=== PATIENT | female | born 1965 ===

== ENCOUNTER 2017-11-24 16:11 | Emergency (ER) | payer MEDICAID ==
[2017-11-24 16:23] VITALS: BP 110/78; PULSE 88; RESP 18; TEMP 97.7; O2SAT 97
--- NOTE | 2017-11-24 16:49 | C.PDOC ---
History Of Present Illness 52 y/o female presents to the ED for evaluation after she sustained an injury to her right shoulder 1 week ago. Patient notes onset was after she tried to prevent her aunt from falling. She reports new onset of pain behind her right shoulder that is worse with movement. Patient is able to find some relief with Motrin and Tylenol. She denies other injuries. R SHOULDER INJURY X 1 WEEK. ONSET AFTER TRYING TO PREVENT AUNT FROM FALLING. NEW ONSET PAIN BEHIND R SHOULDER, WORSE W MOVEMENT. +RELIEF W MOTRIN, TYLENOL. DENIES OTHER INJURY. EXAM NONTOXIC NAD EXT R SHOULDER AROM W REPRODUC PAIN W INT ROTATION, FLEXION. NO DEFORM. NO SWELL SKIN NEG NEURO INTACT ADVISED POSSIBLE NEED FOR ORTHO, OUTPT MRI, PHYSICAL THERAPY. CONTINUE OTC PAIN RX. PT REFUSING PAIN MEDS @ THIS TIME. Time Seen by Provider: 11/24/17 16:35 Chief Complaint (Nursing): Upper Extremity Problem/Injury History Per: Patient History/Exam Limitations: no limitations Onset/Duration Of Symptoms: Other (1 week) Current Symptoms Are (Timing): Still Present Quality: "Pain" Exacerbating Factor(s): Movement Additional History Per: Patient Past Medical History Reviewed: Historical Data, Nursing Documentation, Vital Signs Vital Signs: Last Vital Signs Temp 97.7 F 11/24/17 16:19 Pulse 88 11/24/17 16:19 Resp 18 11/24/17 16:19 BP 110/78 11/24/17 16:19 Pulse Ox 97 11/24/17 22:51 - Medical History PMH: Asthma, Depression Surgical History: Appendectomy - [facility] Procedures CLOSURE SKIN & SUBCUTANEOUS NEC (05/18/13) TETANUS TOXOID ADMINIST (05/18/13) Family History: States: Unknown Family Hx - Social History Hx Tobacco Use: Yes Hx Alcohol Use: Yes Hx Substance Use: No - Immunization History Hx Tetanus Toxoid Vaccination: No Hx Influenza Vaccination: No Hx Pneumococcal Vaccination: No Review Of Systems Musculoskeletal: Positive for: Shoulder Pain (right) Physical Exam - Physical Exam Appears: Non-toxic, No Acute Distress Skin: Normal Color, Warm, Dry Head: Atraumatic, Normacephalic Eye(s): bilateral: Normal Inspection Extremity: Capillary Refill (less than 2 seconds ), No Deformity, No Swelling, Other (right shoulder AROM with reproducible pain with internal rotation and flexion) Neurological/Psych: Oriented x3, Normal Speech, Normal Cognition, Normal Sensation ED Course And Treatment O2 Sat by Pulse Oximetry: 97 (on RA) Pulse Ox Interpretation: Normal Progress Note: Lidoderm TD administered. Medical Decision Making Medical Decision Making: ADVISED POSSIBLE NEED FOR ORTHO, OUTPT MRI, PHYSICAL THERAPY. CONTINUE OTC PAIN RX. PT REFUSING PAIN MEDS @ THIS TIME. Disposition Counseled Patient/Family Regarding: Diagnosis, Need For Followup, Rx Given - Disposition Referrals: Yenifer Garcia MD [Staff Provider] - Disposition: HOME/ ROUTINE Disposition Time: 16:49 Condition: GOOD Prescriptions: Lidocaine 5% [Lidoderm] 1 ea TD PRN PRN #10 patch PRN Reason: Pain, Moderate (4-7) Instructions: Shoulder Sprain (DC), Stretching Exercises for Your Upper Body Forms: [facility] (Dominican) - Clinical Impression Clinical Impression: Right shoulder strain - Scribe Statement The provider has reviewed the documentation as recorded by the Scribe (Jacklyn Malagon) Provider Attestation: All medical record entries made by the Scribe were at my direction and personally dictated by me. I have reviewed the chart and agree that the record accurately reflects my personal performance of the history, physical exam, medical decision making, and the department course for this patient. I have also personally directed, reviewed, and agree with the discharge instructions and disposition.
[2017-11-24] MEDS ORDERED: Lidocaine 5% Patch TD STA (16:53)
[2017-11-24] MEDS ORDERED: Lidocaine 5% Patch TD ONE (17:19)
== END 2017-11-24 17:22 | disposition home or self-care (01) ==
LOC: C.ER 16:11
DX: S46.911A Strain of unspecified muscle, fascia and tendon at shoulder and upper arm level, right arm, initial encounter (principal); X58.XXXA Exposure to other specified factors, initial encounter; Z72.0 Tobacco use

== ENCOUNTER 2018-12-07 18:35 | Emergency (ER) | payer MEDICAID ==
[2018-12-07 18:54] VITALS: BP 133/84; PULSE 64; RESP 18; TEMP 98.4; O2SAT 98
[2018-12-07] MEDS ORDERED: Apap-Butalbital-Caffeine 325-50-40mg Tab PO STA (19:28)
[2018-12-07] MEDS ORDERED: Apap-Butalbital-Caffeine 325-50-40mg Tab ONE (19:47)
--- NOTE | 2018-12-07 21:29 | C.PDOC ---
History Of Present Illness 53 year old female presents to the ED c/o left sided periorbital headache for the past 2 days. Patient reports her headache is radiating to her left sided of her head and neck. Patient took 2 tablets of Advil [employer]. Patient reports having one similar episode one month ago, which resolved after she "slept it off". Patient denies fever, chills, visual changes, rash, neck pain, CP, SOB, nausea, vomit, dizziness, weakness, numbness. Time Seen by Provider: 12/07/18 19:18 Chief Complaint (Nursing): Headache History Per: Patient History/Exam Limitations: no limitations Onset/Duration Of Symptoms: Days (2) Current Symptoms Are (Timing): Still Present Quality: "Pain" Recent travel outside of the [place]: No Additional History Per: Patient Past Medical History Reviewed: Historical Data, Nursing Documentation, Vital Signs Vital Signs: Last Vital Signs Temp 98.4 F 12/07/18 18:49 Pulse 64 12/07/18 18:49 Resp 18 12/07/18 18:49 BP 133/84 12/07/18 18:49 Pulse Ox 98 12/07/18 18:49 Primary Care Provider: Maria A Shine - Medical History PMH: Asthma, Depression Surgical History: Appendectomy - [facility] Procedures CLOSURE SKIN & SUBCUTANEOUS NEC (05/18/13) TETANUS TOXOID ADMINIST (05/18/13) Family History: States: Unknown Family Hx - Social History Hx Tobacco Use: Yes Hx Alcohol Use: Yes Hx Substance Use: No - Immunization History Hx Tetanus Toxoid Vaccination: No Hx Influenza Vaccination: No Hx Pneumococcal Vaccination: No Review Of Systems Constitutional: Negative for: Fever, Chills Eyes: Negative for: Vision Change Cardiovascular: Negative for: Chest Pain, Palpitations Respiratory: Negative for: Shortness of Breath Gastrointestinal: Negative for: Nausea, Vomiting, Abdominal Pain Musculoskeletal: Negative for: Neck Pain Skin: Negative for: Rash Neurological: Positive for: Headache. Negative for: Weakness, Numbness, Dizziness Physical Exam - Physical Exam Appears: Non-toxic, No Acute Distress Skin: Normal Color, Warm, Dry Head: Atraumatic, Normacephalic Eye(s): bilateral: Normal Inspection, PERRL, EOMI Neck: Normal ROM, No Midline Cervical Tenderness, Supple Chest: Symmetrical Cardiovascular: Rhythm Regular Respiratory: Normal Breath Sounds, No Rales, No Rhonchi, No Wheezing Extremity: Normal ROM, No Tenderness, No Swelling Neurological/Psych: Oriented x3, Normal Speech, Normal Cognition Gait: Steady ED Course And Treatment O2 Sat by Pulse Oximetry: 98 (ON RA) Pulse Ox Interpretation: Normal - CT Scan/US CT head Other Rad Studies (CT/US): Read By Radiologist, Radiology Report Reviewed CT/US Interpretation: EXAM: CT Head Without IV contrast. CLINICAL HISTORY: Severe headache left sided. TECHNIQUE: Axial computed tomography images of the head/brain without intravenous contrast. COMPARISON: None provided. FINDINGS: BRAIN: No acute intraparenchymal hemorrhage. No mass lesion. No CT evidence for acute territorial infarct. No midline shift or extra-axial collections. VENTRICLES: No hydrocephalus. ORBITS: The orbits are unremarkable. SINUSES AND MASTOIDS: The paranasal sinuses and mastoid air cells are clear. BONES: No fracture. SOFT TISSUES: Unremarkable. IMPRESSION: No acute intracranial abnormality. . Electronically signed on December 07, 2018 9:14:51 PM EDT by: Mateo Cote M.D., M.B.A., Certified By [employer]. Fellowship Trained MRI and CT Specialist. Progress Note: PLan: - Fioricet 2 tab PO. - CT head. Patient was given Fioricet, however patient still c/o of headache. CT head was ordered. Upon coming back from CT patient reports improvement of symptoms. Patient was advised to follow up with PMD. Disposition Counseled Patient/Family Regarding: Diagnosis, Need For Followup, Rx Given - Disposition Referrals: Maria A Shine MD [Non-Staff] - Disposition: HOME/ ROUTINE Disposition Time: 21:26 Condition: STABLE Additional Instructions: Please follow up with PMD Take medications as directed Return to ER if worse Prescriptions: Acetaminophen/Butalbital/Caf [Fioricet] 1 - 2 tab PO TID PRN #20 tab PRN Reason: Headache Ibuprofen [Motrin] 600 mg PO Q6H #20 tab Instructions: Headache, Adult (DC) Forms: [facility] (Czech) - Clinical Impression Clinical Impression: Headache - PA / AESTHETICIAN / Resident Statement MD/DO has reviewed & agrees with the documentation as recorded. - Scribe Statement The provider has reviewed the documentation as recorded by the Scribe Hardy Chu All medical record entries made by the Scribe were at my direction and personally dictated by me. I have reviewed the chart and agree that the record accurately reflects my personal performance of the history, physical exam, medical decision making, and the department course for this patient. I have also personally directed, reviewed, and agree with the discharge instructions and disposition.
--- NOTE | 2018-12-08 07:02 | CT ---
Date of service: 12/07/2018 PROCEDURE: CT HEAD WITHOUT CONTRAST. HISTORY: severe headache, left sided COMPARISON: None available. TECHNIQUE: Axial computed tomography images were obtained through the head/brain without intravenous contrast. Radiation dose: Total exam DLP = 1051.69 mGy-cm. This CT exam was performed using one or more of the following dose reduction techniques: Automated exposure control, adjustment of the mA and/or kV according to patient size, and/or use of iterative reconstruction technique. FINDINGS: HEMORRHAGE: No intracranial hemorrhage. BRAIN: No mass effect or edema. No atrophy or chronic microvascular ischemic changes. Punctate hypodensity in the left basal ganglia suggestive for a prominent perivascular space. VENTRICLES: Unremarkable. No hydrocephalus. CALVARIUM: Unremarkable. PARANASAL SINUSES: Unremarkable as visualized. No significant inflammatory changes. MASTOID AIR CELLS: Unremarkable as visualized. No inflammatory changes. OTHER FINDINGS: None. IMPRESSION: No acute intracranial abnormality. If symptoms persists, consider correlation with MRI. A preliminary report was generated at 9:14 p.m. on 12/07/[address] Mateo Cote from [employer].
== END 2018-12-07 21:39 | disposition home or self-care (01) ==
LOC: C.ER 18:35
DX: R51 Headache (principal)